=== PATIENT | male | born 1960 | race Caucasian/White ===

== ENCOUNTER 2022-11-13 05:29 | Day surgery (SDC) | payer OTHER ==
[~2022-11-13 05:29] MED LIST: ATORVASTATIN CA40 MG PO; DOXAZOSIN MESYLA4 MG PO; DULOXE PO; HORIZANT300 MG PO; IRBESARTAN-HCT1 EACH PO
== END 2022-11-13 12:25 | disposition home or self-care (01) ==
LOC: CIR.AMB 05:29
PROVIDERS: ATTEND Surgery Surgery of the Hand
DX: D21.11 Benign neoplasm of connective and other soft tissue of right upper limb, including shoulder (principal); M67.843 Other specified disorders of tendon, right hand; M89.9 Disorder of bone, unspecified; D68.9 Coagulation defect, unspecified; Z20.822 Contact with and (suspected) exposure to COVID-19; Z88.2 Allergy status to sulfonamides; Z88.1 Allergy status to other antibiotic agents